=== PATIENT | female | born 1990 | race Caucasian/White ===

== ENCOUNTER 2016-06-16 06:58 | Observation (INO) | payer OTHER ==
--- NOTE | ~2016-06-16 | OP ---
Record Of Operation [facility] [address] [place]. 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 PROCEDURE: Right simple mastectomy with axillary sentinel lymph node biopsy x3. SURGEON: Eleonora Bellamy M.D. ANESTHESIA: General laryngeal mask. ESTIMATED BLOOD LOSS: Nil. FLUIDS: Crystalloid. SPECIMEN: Right breast as well as three axillary nodes. DRAINS: 15 fluted. COMPLICATIONS: None. CONDITION: Good. INDICATIONS: Ms Schwartz is a 26-year-old, who presented to [facility] for right breast mass. She was found to have a suspicious lesion. As she had no healthcare insurance and is from [place], she was referred to the [facility] and then to [facility], my office. She had a rather broad mass 3 to 4 cm lateral right breast, highly suspicious on imaging. Biopsy was performed and was evaluated by [facility], found to have a high-grade invasive ductal carcinoma of the right breast, ER positive, ID negative, HER2 negative, high growth index, moderately differentiated. We pursued MR imaging abnormality. It was found to be significantly larger than on physical exam and standard imaging, about 6 cm in maximum dimension. She underwent a staging chest x-ray CT bone scan without evidence of obvious metastatic disease. I would point out on the MR, there was a suspicious lymph node in the axilla, and I had a needle biopsy performed which was benign without cancer being identified. She was referred to Medical Oncology, a neoadjuvant chemotherapy recommended. We placed a Port-A-Cath. She got one round of Taxol chemotherapy. As she was in the [facility] from her mammogram encounter, she was requested to be presented, and in preparation for this, the [facility] Pathology reviewed her case and did not find evidence of invasive ductal carcinoma on review of the needle biopsy. This was re-reviewed by path group with additional special stains and the [facility] impression of no invasive disease being present was confirmed. Ultimate conclusion was that biopsies represented high-grade ductal carcinoma in situ with cancerization of lobules of breast. In light of the young Record Of Operation [facility] [address] [place]. [address] NAME: CAREY SCHWARTZ : 89 STATUS : DIS Stacey PAT#: [id number] AGE: 26 ADM/REG DATE : 06/16/16 MR#: [id number] REPORT SERV DATE: 06/19/16 DICTATED BY: ELEONORA BELLAMY DATE: 06/19/16 REPORT STATUS : Draft TRANSCRIBED BY: MODL DATE: 06/19/16 age, rather aggressive character on imaging, physical exam, we re-biopsied. The ultrasound needle biopsies rather broadly through the area of disease and again that ductal carcinoma with cancerization of lobules on review both [facility] and [facility] Imaging. With lack of invasive disease being present, they have recommended that we proceed with a simple mastectomy and in light of young age and rather aggressive workup of the tumor sentinel lymph node biopsy, and she is agreeable. She was evaluated preop imaging, and interestingly, in spite of no invasive disease being identified on preop biopsies, there has been a complete resolution of the right breast mass after one dose of Taxol chemotherapy. I do not know if this is because of the chemotherapy or if it is more related to the timing of in her menstrual cycle. Nonetheless, we got multiple biopsies showing high-grade ductal carcinoma in situ Cancerization lobules. The patient and family understanding and agreeable with recommendation for mastectomy sentinel node biopsy. PROCEDURE IN DETAIL: After being identified and marked in preop holding, confirming lymphoscintigraphy draining to the right axilla, she has brought the OR and positioned supine. General laryngeal mask anesthesia was induced. Time-out was performed. Right breast chest axilla upper extremity prepped and draped sterilely. I surveyed with the Neoprobe and in the axilla identified a focal point of activity of 7730 count per 10 seconds, this was marked. We then marked an elliptical transverse incision for the mastectomy inclusive of the nipple areolar complex. I made the elliptical skin incision and dissected into the superficial subcutaneous layer roughly about 5 mm (Ms Theune is rather slight in body build and slender). We then dissected in the subcutaneous plane medial to the sternum superior to a point just below the clavicle inferior to the costal margin to the lateral extent of the breast in the mid axilla. Superiorly, we dissected until we began to enter the axilla proper. The breast was then reflected off the pectoral muscle from medial to lateral. There was quite a bit of penetrating vessel bleeding that was controlled with some difficulty with electrocautery. Once we reached the lateral border of the pectoralis major, we dissected the tissues from the interpectoral groove preserving the nerve to the pectoralis major. Once we were lateral to the pectoralis minor, I began to dissect into the axilla proper and we brought the Neoprobe back on the field. Through the mastectomy incision, we surveyed and there was a very focal point of activity 9078 count per 10 seconds. We dissected in this area and identified about a 1 cm pink fleshy lymph node. This was excised with electrocautery, ex vivo 79690 count per 10 seconds, this was labeled and sent to formalin as sentinel node #1. We again surveyed in the axilla and identified a focal point of activity 13202 count per 10 seconds. Carefully dissected and identified again a rather fleshy pink lymph node about 8 mm, this was excised with electrocautery, ex vivo activity 93270 count per 10 seconds, this was sent to formalin and labeled as sentinel node #2. We resurveyed and identified a focal point of activity, this corresponded to about a 3 to 4 mm very small lymph node. This was excised with the electrocautery, ex vivo count was 1551 per 10 seconds, this was sent to formalin and labeled sentinel node #3. We now resurveyed the axilla and it was hard to find a focal point of activity, but there was vague focal activity measuring 652 count per 10 seconds, this was a "post base and count." We now excised the residual attachment of the breast to the lateral axilla. I placed orienting sutures and passed it off to pathology. We had several small bleeding points on both skin flaps and chest wall controlled with cautery. Irrigated with saline and had a clear return. We broadly infiltrated the chest wall and flaps with Marcaine solution. Through an inferolateral stab incision, we placed a 15 fluted drain, coiling it in the axilla in the Record Of Operation [facility] [address] [place]. [address] NAME: CAREY SCHWARTZ : 89 STATUS : DIS Stacey PAT#: [id number] AGE: 26 ADM/REG DATE : 06/16/16 MR#: [id number] REPORT SERV DATE: 06/19/16 DICTATED BY: ELEONORA BELLAMY DATE: 06/19/16 REPORT STATUS : Draft TRANSCRIBED BY: MORRIS DATE: 06/19/16 low mastectomy flaps. The drain was anchored with 3-0 nylon. Subcu was closed with two running layers of 3-0 Vicryl. Dermis was closed with 4-0 Monocryl followed by Mastisol Steri-Strips. Bulky absorbent dressing was applied. Ms Schwartz was recovered from anesthetic, extubated, and transported to recovery room in good condition having tolerated the surgery well. MEENU/MORRIS Eleonora Bellamy M.D. / [id number] CC: Eleonora Bellamy M.D.
[~2016-06-16 06:58] MED LIST: ATV1 PO; BACDS PO; DORYX100 MG PO
[2016-06-16 07:28] LABS: BASOPHILS 0.3 %; BASOPHILS ABSOLUTE 0.03 10/3/uL (0.0-0.16); EOSINOPHILS 0.5 %; EOSINOPHILS ABSOLUTE 0.05 10/3/uL (0.0-0.53); HEMATOCRIT 35.3 % (36.0-48.0); HEMOGLOBIN 12.3 g/dL (12.0-16.0); IMMATURE GRANULOCYTES 0.6 %; IMMATURE GRANULOCYTES ABSOLUTE 0.06 10/3/uL (0.0-0.11); LYMPHOCYTES 30.1 %; LYMPHOCYTES ABSOLUTE 2.91 10/3/uL (0.67-4.30); MEAN CORPUS HGB CONC 34.8 g/dL (32.0-36.0); MEAN CORPUSCULAR HEMOGLOB 31.5 pg (26.0-34.0); MEAN CORPUSCULAR VOLUME 90.5 fL (80-100); MEAN PLATELET VOLUME 10.2 fL (9.2-13.0); MONOCYTES ABSOLUTE 0.48 10/3/uL (0.21-1.20); NEUTROPHILS 63.5 %; NEUTROPHILS ABSOLUTE 6.15 10/3/uL (2.02-8.40); PLATELET COUNT 135 10/3/uL (150-400); RBC DISTRIBUTION WIDTH 12.3 % (12.0-16.0); WHITE BLOOD CELLS 9.7 10/3/uL (4.5-10.5)
[2016-06-16 07:32] LABS: MANUAL DIFF NO %
[2016-06-16 07:37] LABS: BUN (BLOOD UREA NITROGEN) 12 MG/DL (6-23); CALCIUM, SERUM 8.6 MG/DL (8.5-10.4); CHLORIDE, SERUM 107 MMOL/L (96-112); CO2 (CARBON DIOXIDE) 29 MMOL/L (24-34); CREATININE 0.86 MG/DL (0.55-1.02); GFR AFRICAN AMERICAN 108 ML/MIN (>=60); GFR NON AFRICAN AMERICAN 93 ML/MIN (>=60); GLUCOSE, SERUM 93 MG/DL (60-99); POTASSIUM, SERUM 4.3 MMOL/L (3.5-5.3); SODIUM, SERUM 140 MMOL/L (135-148)
[2016-06-17 05:39] LABS: BASOPHILS 0.2 %; BASOPHILS ABSOLUTE 0.02 10/3/uL (0.0-0.16); EOSINOPHILS 0 %; HEMATOCRIT 30.9 % (36.0-48.0); IMMATURE GRANULOCYTES 0.3 %; IMMATURE GRANULOCYTES ABSOLUTE 0.04 10/3/uL (0.0-0.11); LYMPHOCYTES 14.5 %; LYMPHOCYTES ABSOLUTE 1.87 10/3/uL (0.67-4.30); MEAN CORPUS HGB CONC 35.6 g/dL (32.0-36.0); MEAN CORPUSCULAR HEMOGLOB 32.1 pg (26.0-34.0); MEAN CORPUSCULAR VOLUME 90.1 fL (80-100); MEAN PLATELET VOLUME 10.6 fL (9.2-13.0); MONOCYTES 5.3 %; MONOCYTES ABSOLUTE 0.68 10/3/uL (0.21-1.20); NEUTROPHILS 79.7 %; NEUTROPHILS ABSOLUTE 10.33 10/3/uL (2.02-8.40); PLATELET COUNT 134 10/3/uL (150-400); RBC DISTRIBUTION WIDTH 12.4 % (12.0-16.0); RED CELL COUNT 3.43 10/6/uL (4.0-5.6); WHITE BLOOD CELLS 12.9 10/3/uL (4.5-10.5)
[2016-06-17 05:40] LABS: MANUAL DIFF NO %
[2016-06-18] MEDS ORDERED: PCET PO (09:46)
[2016-06-18] MEDS ORDERED: PR25 PO (09:46)
== END 2016-06-18 15:11 | disposition home or self-care (01) ==
LOC: SDC 06:58 → 4EA 16:57
PROVIDERS: Surgery
PROC: 07B50ZX Excision of Right Axillary Lymphatic, Open Approach, Diagnostic (ICD-10-PCS; 2016-06-16)
PROC: 0HBT0ZZ Excision of Right Breast, Open Approach (ICD-10-PCS; principal; 2016-06-16 10:45)
DX: D05.11 Intraductal carcinoma in situ of right breast (principal); F41.9 Anxiety disorder, unspecified; Z87.891 Personal history of nicotine dependence; Z88.0 Allergy status to penicillin; Z88.1 Allergy status to other antibiotic agents; Z88.8 Allergy status to other drugs, medicaments and biological substances; Z98.890 Other specified postprocedural states
CPT/HCPCS: 78195; 80048; 84703; 85025; 88307; 88342; 96372; 96374; 96375; 96376; A9270-GY; A9541; G0378; J1885; J2250; J2270; J2405; J3010; J3370